=== PATIENT | female | born 1955 | race Asian ===

== ENCOUNTER 2016-08-01 06:05 | Day surgery (SDC) | payer OTHER ==
[2016-07-29 09:33] LABS: BASOPHILS # (AUTO) 0.1 K/uL (0.00-0.22); BASOPHILS % (AUTO) 1.8 % (0.0-2.0); EOSINOPHILS # (AUTO) 0.2 K/uL (0-0.4); EOSINOPHILS % (AUTO) 3.7 % (0.0-4.0); HEMATOCRIT 40.1 % (36-48); HEMOGLOBIN 13.4 g/dL (12.0-16.0); LYMPHOCYTES # (AUTO) 1.9 K/uL (2.5-16.5); LYMPHOCYTES % (AUTO) 29.9 % (20.5-51.1); MEAN CORPUSCULAR HEMOGLOBIN 30 pg (27-31); MEAN CORPUSCULAR HGB CONC 33 g/dL (33-37); MEAN CORPUSCULAR VOLUME 90 fL (80-94); MONOCYTES # (AUTO) 0.4 K/uL (0.8-1.0); MONOCYTES % (AUTO) 6.8 % (1.7-9.3); NEUTROPHILS # (AUTO) 3.8 K/uL (1.8-7.7); NEUTROPHILS % (AUTO) 57.8 % (42.2-75.2); PLATELET COUNT (AUTO) 165 K/uL (140-450); RED BLOOD CELL COUNT(AUTO) 4.46 MIL/uL (4.20-5.40); RED CELL DISTRIBUTION WIDTH 12.5 % (11.6-13.7); WHITE BLOOD COUNT (AUTO) 6.4 K/uL (4.8-10.8)
[2016-07-29 10:21] LABS: ALBUMIN 3.8 g/dL (3.4-5.0); ANION GAP 13.2 (8-16); CALCIUM 8.9 mg/dL (8.5-10.1); CARBON DIOXIDE 27.7 mmol/L (21-32); CREATININE 0.9 mg/dL (0.6-1.3); POTASSIUM 3.9 mmol/L (3.5-5.1); TOTAL BILIRUBIN 0.7 mg/dL (0.0-1.0); TOTAL PROTEIN, SERUM 7.7 g/dL (6.4-8.2)
[~2016-08-01] VITALS: Ht 165.1 cm; Wt 61.2 kg
[2016-08-01] MEDS ORDERED: SEVOFLURANE 250 ML BTL INH ONE (07:20)
[2016-08-01] MEDS ORDERED: PROPOFOL 200 MG/20 ML VIAL IV ONE (07:20)
[2016-08-01] MEDS ORDERED: MIDAZOLAM 2 MG/2 ML VIAL ONE (07:33)
[2016-08-01] MEDS ORDERED: fentaNYL 0.05 MG/ML VIAL ONE (07:33)
[2016-08-01] MEDS ORDERED: ONDANSETRON 4 MG/2 ML VIAL IVP PRN (07:50)
[2016-08-01] MEDS ORDERED: HYDROmorphone 1 MG/ML AMP IVP PRN (07:50)
[2016-08-01] MEDS: HYDROmorphone PFS 2 MG/ML SYR ONE ×2 (08:40→08:50)
--- NOTE | 2016-08-01 09:30 | NUR ---
PT ON UNIT. NO S/S OF ACUTE DISTRESS. PT DENIES PAIN. IV SITE PATENT AND INTACT. FAMILY AT BEDSIDE. MINIMAL BLEEDING NOTED. AAOX4. CALL LIGHT WITHIN REACH. SAFETY MEASURES ENSURED. WILL CONTINUE TO MONITOR.
--- NOTE | 2016-08-01 11:54 | NUR ---
PT SLEEPING IN BED. NO S/S OF ACUTE DISTRESS. CALL LIGHT WITHIN REACH. SAFETY MEASURES ENSURED. WILL CONTINUE TO MONITOR.
[2016-08-01 13:07] VITALS: BP 132/90
--- NOTE | 2016-08-01 15:26 | NUR ---
PT RESTING IN BED. NO S/S OF ACUTE DISTRESS. TIKI PAD CHANGED. MINIMAL BLEEDING NOTED. PT DENIES PAIN. CALL LIGHT WITHIN REACH. AT BEDSIDE. WILL CONTINUE TO MONITOR.
--- NOTE | 2016-08-01 19:15 | NUR ---
ENDORSED PLAN OF CARE TO NIGHT RN. PT REMAINS STABLE.
--- NOTE | 2016-08-01 19:30 | NUR ---
RECEIVED REPORT FROM AM NURSE. PT'S AT BEDSIDE. PT AOX4, ABLE TO VERBALIZE NEEDS. PT DENIES CP, SOB OR S/S OF ACUTE DISTRESS. PT DENIES PAIN AT THIS TIME. RIVERA CATH IN PLACE. IV ACCESS ASYMPTOMATIC, PATENT AND INTACT. SALINE LOCKED. DISCUSSED AND REVIEWED PLAN OF CARE WITH PT. PT VERBALIZES UNDERSTANDING SAFETY MEASURES ENSURED. CALL LIGHT WITHIN REACH. WILL CONTINUE TO MONITOR.
[2016-08-01 21:06] VITALS: BP 100/64
--- NOTE | 2016-08-01 22:00 | NUR ---
PT RESTING COMFORTABLY IN BED. ALL NEEDS MET. SAFETY MEASURES ENSURED. CONDITION STABLE.
--- NOTE | 2016-08-02 | NUR ---
PT SLEEPING COMFORTABLY IN BED. ALL NEEDS MET. SAFETY MEASURES ENSURED. CONDITION STABLE.
--- NOTE | 2016-08-02 03:43 | NUR ---
PT SLEEPING COMFORTABLY IN BED. ALL NEEDS MET. SAFETY MEASURES ENSURED. CONDITION STABLE.
[2016-08-02 04:00] VITALS: BP 106/70
--- NOTE | 2016-08-02 05:19 | NUR ---
PT CLEANED AND BED LINEN CHANGED WITH INTEGRITY DIRECTOR [employer]. PT'S PERIPAD CHANGED, MINIMAL SEROSANGUINOUS DISCHARGE NOTED. PT DENIES PAIN AT THIS TIME. PT TOLERATED WELL.
--- NOTE | 2016-08-02 07:22 | NUR ---
CONDITION STABLE. ENDORSED PLAN OF CARE TO AM NURSE.
--- NOTE | 2016-08-02 07:25 | NUR ---
RECEIVED PT REPORT AT BEDSIDE FROM NIGHT NURSE. PT IS AAOX4 AND DENIES PAIN. PT HAS A NOTED IV SITE ON THE L HAND. PT SKIN IS INTACT. PT SHOWS NO S/S OF DISTRESS NOTED ON ROOM AIR. PT BED IS LOWERED WITH CALL LIGHT WITHIN REACH. PT VERBALIZED UNDERSTANDING OF POC FOR TODAY BY USING TOP CUTTER PHONE. WILL CONTINUE TO MONITOR.
--- NOTE | 2016-08-02 08:05 | NUR ---
DISCONTINUED RIVERA CATHETER WITH 200 CC OF PALE YELLOW URINE. PT TOLERATED PROCEDURE WELL. PT SHOWS NO S/S OF DISTRESS ON ROOM AIR. PT BED IS LOWERED WITH CALL LIGHT WITHIN REACH. PT HAS FAMILY MEMBER AT BEDSIDE.
--- NOTE | 2016-08-02 10:15 | NUR ---
PT IN BED RESTING WITH FAMILY MEMBER AT BEDSIDE. PT SHOWS NO S/S OF DISTRESS ON ROOM AIR.
--- NOTE | 2016-08-02 11:30 | NUR ---
PT AMB TO RESTROOM WITH STEADY GAIT.
[2016-08-02] MEDS ORDERED: PNEUMOCOCCAL VACCINE 23 MCG/0.5 ML VIAL IMVAC SCH (11:40)
--- NOTE | 2016-08-02 12:30 | NUR ---
USED TELEPHONE [employer] METAL CAN INSPECTOR WORKER ID# [id number] TO COMMUNICATE WITH PT AND PROVIDE DISCHARGE ORDERS. PT SIGNED ALL DISCHARGE INSTRUCTIONS AND PAPERWORK. ALL QUESTIONS WERE ANSWERED. PT VERBALIZED UNDERSTANDING. ALL BELONGINGS IN PT POSSESSION. IV DISCONTINUED WITH CANNULA INTACT. WRISTBANDS REMOVED. OFFERED PT WHEELCHAIR PT REFUSED. PT TO AMB OUT OF UNIT. PT IS GETTING DRESSED.
--- NOTE | 2016-08-02 13:15 | NUR ---
PT REFUSED WHEELCHAIR. PT WALKED OUT OF UNIT WITH STEADY GAIT AND FAMILY PRESENT AT SIDE. PT LEFT IN STABLE CONDITION.
== END 2016-08-02 13:15 | disposition home or self-care (01) ==
LOC: MDS 06:05 → MMU 06:05 → MTU 09:30 → MDS 08-02 13:15
PROVIDERS: ATTEND Obstetrics & Gynecology
DX: N81.10 Cystocele, unspecified (principal); N81.6 Rectocele; N39.3 Stress incontinence (female) (male); N82.3 Fistula of vagina to large intestine; N94.10 Unspecified dyspareunia; Z23 Encounter for immunization
CPT/HCPCS: 36415; 57260; 71010; 80053; 85025; 87081; 90732; 93005; J0690; J1170; J2250; J2704; J3010; J7030; J7060; Q0092